=== PATIENT | female | born 1950 | race Asian ===

== ENCOUNTER 2020-07-06 07:09 | Day surgery (SDC) | payer MEDICARE, OTHER ==
[2020-07-04 14:27] LABS: COVID AG,FIA SOURCE NASOPHARYNGEAL
[~2020-07-06] VITALS: Ht 154.9 cm; Wt 54.5 kg
[~2020-07-06 07:09] MED LIST: RINGERS SOLUTION,LACTATED 500 ML IV ONE
[2020-07-06] MEDS ORDERED: CHONDR SULF A SOD/HYALURONATE 1.05 ML KIT IO ONE (07:10)
[2020-07-06] MEDS ORDERED: RINGERS SOLUTION,LACTATED 500 ML IV ONE ×2 (07:14→09:26)
[2020-07-06] MEDS ORDERED: KETOROLAC TROMETHAMINE 0.5% 5 ML OPHTHALMIC SOLUTION ONE (07:15)
[2020-07-06] MEDS ORDERED: MOXIFLOXACIN HCL 0.5% 3 ML OPHTHALMIC SOLUTION ONE (07:15)
[2020-07-06] MEDS ORDERED: PHENYLEPHRINE HCL 2.5% 2 ML OPHTHALMIC SOLUTION ONE (07:15)
[2020-07-06] MEDS ORDERED: TROPICAMIDE 1% 2 ML OPHTHALMIC SOLUTION ONE (07:15)
[2020-07-06] MEDS: KETOROLAC TROMETHAMINE 0.5% 5 ML OPHTHALMIC SOLUTION OS SCH ×3 (09:38→09:47)
[2020-07-06] MEDS: MOXIFLOXACIN HCL 0.5% 3 ML OPHTHALMIC SOLUTION OS SCH ×3 (09:38→09:47)
[2020-07-06] MEDS: TROPICAMIDE 1% 2 ML OPHTHALMIC SOLUTION OS SCH ×3 (09:39→09:47)
[2020-07-06] MEDS: PHENYLEPHRINE HCL 2.5% 2 ML OPHTHALMIC SOLUTION OS SCH ×3 (09:39→09:47)
[2020-07-06] MEDS ORDERED: MIDAZOLAM HCL 2 MG/2 ML VIAL IVP ONE (12:00)
[2020-07-06] MEDS ORDERED: FentaNYL CITRATE PF 100 MCG/2 ML VIAL IVP ONE (12:00)
== END 2020-07-06 10:50 | disposition home or self-care (01) ==
LOC: SURGERY 07:09
PROVIDERS: ATTEND Ophthalmology
DX: H25.12 Age-related nuclear cataract, left eye (principal); M19.90 Unspecified osteoarthritis, unspecified site; I10 Essential (primary) hypertension; M06.9 Rheumatoid arthritis, unspecified; Z90.710 Acquired absence of both cervix and uterus; Z79.899 Other long term (current) drug therapy
CPT/HCPCS: 66984; 87426; 93005; A9575; C9803; J2250; J3010; J7120; V2632